=== PATIENT | female | born 1960 | race Two or more races ===

== ENCOUNTER 2021-05-06 07:00 | Day surgery (SDC) | payer OTHER | END 2021-05-06 14:15 | disposition home or self-care (01) | LOC: CIR.AMB 07:00 | PROVIDERS: ATTEND Colon & Rectal Surgery | DX: D12.0 Benign neoplasm of cecum (principal); K64.2 Third degree hemorrhoids; Z20.822 Contact with and (suspected) exposure to COVID-19 ==